=== PATIENT | male | born 1970 | race Caucasian/White ===

== ENCOUNTER 2020-11-03 08:22 | Emergency (ER) | payer MEDICARE, MEDICAID ==
[~2020-11-03] VITALS: Ht 180.3 cm; Wt 95.3 kg
[~2020-11-03 08:22] MED LIST: ABILIFY30 MG PO; ALPRAZOLAM 0.0.25 M1 PO; ASPIRIN325 PO; BACTRIM DS TAB1 EACH PO; BENZTROPINE MES1 MG PO; CEPHALEXIN 500500 M3 PO; DILTIAZEM ER120 M1 PO; EPIPEN 2-P0.3 MG/0.3 IM; FLEXERIL PO; HYDROCODONE-AP1 EAC6 PO; IBUPROFEN 800800 M1 PO; KEFLEX500 MG PO; LANSOPRAZOLE30 MG PO; LOVAZA1000 MG PO; PAIN & FEVER325 MG PO; PRAVACHOL40 MG PO; PREDNISONE50 MG PO; PREVACID30 M1 PO; PROZAC 20 MG20 M1 PO; PROZAC10 MG PO; RISPERDAL 3 MG T3 M1 PO; RISPERDAL2 MG PO; SEROQUEL 100 M100 M1 PO; SEROQUEL 25 MG25 M1 PO; SINGULAIR 10 MG10 M1 PO; SSD CREAM 1% 5050 GM TOP; TRICOR145 MG PO; VISTARIL 25 MG25 M1 PO; WELLBUTRIN75 MG PO
[2020-11-03] MEDS ORDERED: AUGMENTIN 875-1 EACH PO (08:56)
[2020-11-03 09:16] VITALS: BP 135/99
== END 2020-11-03 09:17 | disposition home or self-care (01) ==
LOC: M.ERS 08:22
DX: S61.552A Open bite of left wrist, initial encounter (principal); S60.212A Contusion of left wrist, initial encounter; F17.210 Nicotine dependence, cigarettes, uncomplicated; F20.9 Schizophrenia, unspecified; Z90.89 Acquired absence of other organs; Z79.82 Long term (current) use of aspirin; Z79.899 Other long term (current) drug therapy; Z88.5 Allergy status to narcotic agent; W54.0XXA Bitten by dog, initial encounter; Y93.89 Activity, other specified; Y92.89 Other specified places as the place of occurrence of the external cause; Y99.8 Other external cause status